=== PATIENT | male | born 1970 | race Caucasian/White ===

== ENCOUNTER 2020-03-11 07:07 | Emergency (ER) | payer OTHER, SELFPAY ==
[2020-03-11 07:09] VITALS: BP 201/111; PULSE 90; RESP 20; TEMP 36.8; O2SAT 98; BMI 39.4
--- NOTE | 2020-03-11 07:15 | CT_ITS ---
STUDY: CT ABDOMEN AND PELVIS WITH CONTRAST REASON FOR EXAM: Male, 49 years old. PT STATED RT SIDE ABDOM PAIN, NO PREV ABDOMINAL HX RADIATION DOSAGE (If Supplied By Facility): CTDIvol = ( 17.08 ) mGy, DLP = ( 1350.57 ) mGycm TECHNIQUE: Transaxial images were obtained from the dome of the diaphragm to the symphysis pubis without oral contrast. IV 100mL Isovue-300 was administered. Sagittal and coronal images were reconstructed. Individualized dose optimization techniques were used for this CT. COMPARISON: None. FINDINGS: Increased markings with areas of confluence in the lateral aspect of the left lower lobe. The visualized portions of the heart are within normal limits. Normal liver. Normal gallbladder and extrahepatic biliary system. Normal spleen. Normal pancreas. Normal bilateral adrenal glands. There is a 1 cm cyst in the anterior upper pole of the right kidney. There is a 5 mm nonobstructive calculus in the lower pole calyx of the right kidney. Mild degree of right hydronephrosis due to a 3 mm calculus at the right ureteropelvic junction. Nonobstructive 5.1 mm calculus in the upper pole of the left kidney. Normal visualized stomach. Normal small intestine. There are scattered colonic diverticula consistent with diverticulosis. The appendix is visualized and appears normal. There is scattered atherosclerotic calcification of the abdominal aorta, without a demonstrated aneurysm. Normal inferior vena cava. Normal retroperitoneum. Normal urinary bladder. There are prostatic calcifications. There is a small umbilical hernia containing fat. There are mild degenerative changes of the visualized lumbar spine. CT/Abdomen/Pelvis W IV Cont ONLY IMPRESSION: 3 mm calculus at the right ureteral pelvic junction causing mild degree of the right hydronephrosis. Small bilateral nonobstructive intrarenal calculi. Mild increased markings in the lateral aspect of the left lower lobe suggestive of atelectasis and/or early infiltrate. Electronically Signed: Blaze Amaya, at 8:17 EDT , Service support ,
[2020-03-11 07:17] VITALS: BP 201/111; PULSE 90; RESP 20; TEMP 36.8; O2SAT 98
[2020-03-11 07:25] LABS: Basophil# 0.09 X10^3/uL; Basophil% 0.7 % (0-1); Eosinophil# 0.32 X10^3/uL; Eosinophils% 2.4 % (0-5); Hematocrit 46.2 % (40-54); Lymphocyte % 27.5 % (19-41); Mean Corp Hgb Conc 32.5 g/dL (32-36); Mean Corpuscular Hgb 30.3 pg (27.0-32.0); Mean Corpuscular Volume 93.3 fL (80-94); Mean Platelet Vol. 10.4 fl (6.2-12.0); Monocyte% 7.6 % (0-10); NRBC Flagged by Analyzer 0 % (0-5); Neutrophil # 8.03 X10^3/uL (2.7-7.7); Neutrophil % 61.3 % (47-70); Platelet Count 346 K/mm3 (150-450); RBC Distribution Width CV 13.6 % (11.6-14.6); RBC Distribution Width SD 46.5 fl (35.1-43.9); Red Blood Count 4.95 M/mm3 (4.6-6.2); White Blood Count 13.1 K/mm3 (4.4-11.0)
[2020-03-11] MEDS: Morphine 4 MG/ML Syringe IV ×2 (07:25→08:07)
[2020-03-11] MEDS: Ondansetron 4 MG/2 ML Vial IV (07:25)
[2020-03-11] MEDS: 0.9% Normal Saline 1,000 ML 1000 ML IV (07:25)
[2020-03-11 07:39] LABS: ALB/GLOB Ratio 0.8 RATIO (0.9-2.4); AST(SGOT) 18 U/L (15-37); Alanine Aminotransfer ALT/SGPT 35 U/L (16-61); Albumin, Serum 3.7 g/dL (3.2-5.0); Alkaline Phosphatase 103 U/L (45-117); Anion Gap 5 (5-15); BUN 12 mg/dL (7-18); BUN/Creat Ratio 10.9 RATIO (10-20); Calcium,Total 9.2 mg/dL (8.5-10.1); Chloride 105 mmol/L (98-107); EST Glomerular Filtration Rate 75 mL/min (>60); Est Glom Filt Rate - Afr Amer 91 mL/min (>60); Estimated Creatinine Clearance 82.03 ml/min; Globulin 4.5 g/dL (2.2-4.2); Glucose 133 mg/dL (74-106); Lipase 147 U/L (73-393); Potassium 3.9 mmol/L (3.5-5.1); Protein, Total 8.2 g/dL (6.4-8.2); Sodium Level 139 mmol/L (136-145)
--- NOTE | 2020-03-11 07:44 | ED.DCSUM_ITS ---
- ER Visit Summary Date of Service: 03/11/20 Chief Complaint: Abdominal pain History of Present Illness: The patient is a [address] Ramirez. Patient reports she woke up this morning at 428 with abdominal pain. States he was fine when he went to bed. Describes it is a sharp pain that is 10 of 10 at worst and a 10 currently. Is worsened by nothing relieved by nothing. He said nausea without vomiting. No diarrhea. His last bowel was yesterday. No melena or hematochezia. No dysuria or frequency. Patient denies flank pain. He has no personal or family history of kidney stones. Review of systems patient reports he had subjective fever and chills. He denies any other complaints. Physical Examination: Vitals: Stable. Afebrile. General: Well-nourished and well-developed. Head: Normocephalic atraumatic. Neck: Supple, no lymphadenopathy. No JVD. Nontender. Cardiovascular: Regular rate and rhythm. No murmurs. Respiratory: No respiratory distress. Clear to auscultation bilaterally. Abdominal: Soft, mild diffuse tenderness palpation is worse in the right lower quadrant, nondistended, normal bowel sounds. No guarding, rebound, or peritoneal signs. Back: Nontender. No CVA tenderness. Extremities: Nontender, no edema. Skin: Normal color, no rash. Neurologic: Alert and oriented ?3. Cranial nerves II through XII are intact. Normal strength and sensation. Psych: Normal affect. Test Results: CBC shows a white count of 13.1. Chem-7 shows a glucose 133. LFTs show globulin 4.5. Lipase is 147. UA shows 50-100 white blood cells, 25- 50 red blood cells, and 1+ bacteria. This was sent for culture. Clinical Impression(s) from Imaging Studies Abdomen/Pelvis CT 03/11/20 07:15 IMPRESSION: 3 mm calculus at the right ureteral pelvic junction causing mild degree of the right hydronephrosis. Small bilateral nonobstructive intrarenal calculi. Mild increased markings in the lateral aspect of the left lower lobe suggestive of atelectasis and/or early infiltrate. Electronically Signed: Blaze Amaya, at 8:17 EDT , Service support , Emergency Department Course and Treatment: Patient had an IV placed. He is given a liter of normal saline. He is given morphine and Zofran IV. He is resting more comfortably. When patient's urine returned he was given a dose of Rocephin IV. He is resting comfortably. Treatment Plan: Patient will be discharged with Percocet, Zofran, naproxen, and Cipro. Instructed to follow-up with Dr. Maher in 3 to 5 days if not improving. Return to the emergency department for any worsening symptoms. Disposition: To home in improved and stable condition. Impression: 1. Right ureterolithiasis. 2. UTI. This note was generated with [employer] dictation software. It may contain incorrect words, spelling, and punctuation that were not noted in review of the chart prior to signing ED Disposition - Plan for ED Patient: Instructions: ED Renal Stone w Colic Prescriptions: Ciprofloxacin [Cipro] 500 mg PO BID #14 tablet Oxycodone HCl/Acetaminophen [Percocet 5/325] 1 tablet PO Q6H PRN PRN 3 Days #12 tablet PRN Reason: Pain Ondansetron [Zofran Odt] 4 mg PO Q8H PRN PRN #10 tablet PRN Reason: Nausea Referrals: Ned Salazar MD [STAFF PHYSICIAN] - 3-5 Days if not improving
[2020-03-11 08:55] LABS: Mucous, Urine 0 SEEN /hpf (<or=2+)
[2020-03-11 08:56] VITALS: BP 149/84; PULSE 77; RESP 19; O2SAT 97
[2020-03-11 08:57] VITALS: BP 149/84; PULSE 77; RESP 19; TEMP 36.9; O2SAT 96
[2020-03-11 08:58] LABS: Color, Urine Yellow (Yellow); Glucose, Dipstick Normal (Normal); Ketone-Dipstick Negative (Negative); Leukocyte Esterase-Dipstick 500 /ul (Negative); Nitrite-Dipstick Negative (Negative); Occult Blood-Urine 250 /ul (Negative); Protein-Dipstick 15 mg/dl (Negative); Specific Gravity, Urine 1.015 (1.002-1.030); Urine Bilirubin Dipstick Negative (Negative); Urine Clarity Sl. Cloudy (Clear); Urine Urobilinogen Normal (Normal)
[2020-03-11 09:12] LABS: Bacteria 1+ /hpf (None Seen); Red Blood Cells-Urine 25-50 SEEN /hpf (0-5); Squamous Epithelial Cells - UA 0-5 SEEN /hpf (0-5); White Blood Cells 50-100 SEEN /hpf (0-5)
[2020-03-11] MEDS: Ceftriaxone 1 GM/50 ML BAG IV (09:44)
[2020-03-11 10:21] VITALS: BP 152/78; PULSE 78; RESP 18; O2SAT 96
== END 2020-03-11 10:22 | disposition home or self-care (01) ==
PROVIDERS: Emergency Provider Emergency Medicine
DX: N13.6 Pyonephrosis (principal); Z72.0 Tobacco use
CPT/HCPCS: 74177; 80053; 81001; 83690; 85025; 87086; 96361; 96365; 96375; 96376; 99283; J7030; Q9967; A4216; J2405

== ENCOUNTER 2021-04-04 21:07 | Emergency (ER) | payer BC, SELFPAY ==
[2021-04-04 21:07] VITALS: BP 189/112; PULSE 80; RESP 20; TEMP 35.9; O2SAT 96; BMI 41.9
--- NOTE | 2021-04-04 21:24 | CT_ITS ---
STUDY: CT ABDOMEN AND PELVIS WITHOUT CONTRAST REASON FOR EXAM: Male, 50 years old. Right flank pain. History of kidney stones. RADIATION DOSAGE (If Supplied By Facility): CTDIvol = ( 23.61 ) mGy, DLP = ( 1286.15 ) mGycm TECHNIQUE: Transaxial images were obtained from the dome of the diaphragm to the symphysis pubis without oral contrast, and without intravenous contrast. Sagittal and coronal images were reconstructed. Individualized dose optimization techniques were used for this CT. COMPARISON: March 11, 2020. FINDINGS: The visualized lung bases are unremarkable. The visualized portions of the heart are within normal limits. Normal liver. Normal gallbladder and extrahepatic biliary system. Normal spleen. Normal pancreas. Normal bilateral adrenal glands. Mild right hydronephrosis secondary to a 6 mm x 3 mm proximal ureteral stone. Bilateral nonobstructive renal calculi largest in the left measuring 6 mm. No left hydronephrosis. Normal visualized stomach. Normal small intestine. Diverticulosis primarily involving the sigmoid colon. The appendix is probably visualized and appears normal. No secondary signs of acute appendicitis. Normal abdominal aorta. Normal inferior vena cava. Normal retroperitoneum. No intra-abdominal free air. Normal urinary bladder. Prostate gland is not enlarged. Normal abdominal wall. Normal osseous structures. CT/Abdomen/Pelvis without Cont IMPRESSION: Mild right hydronephrosis secondary to a 6 mm x 3 mm proximal ureteral stone. Bilateral nonobstructive renal calculi. Sigmoid diverticulosis. Electronically Signed: Josiah Palacios MD at 23:30 EDT , Service support ,
[2021-04-04] MEDS: Ketorolac 30 MG/ML Syringe IV (22:32)
[2021-04-04] MEDS: Ondansetron 4 MG/2 ML Vial IV (22:32)
[2021-04-04] MEDS: 0.9% Normal Saline 1,000 ML 150 ML IV (22:33)
[2021-04-04] MEDS: Morphine 4 MG/ML Syringe IV (22:37)
[2021-04-04 22:40] LABS: Absolute Lymphocyte Count 3.26 X10^3/uL (0.83-4.51); Absolute Neutrophil Count 9.4 X10^3/uL (2.0-7.7); Basophil# 0.11 X10^3/uL; Basophil% 0.8 % (0-1); Eosinophils% 2.8 % (0-5); Hematocrit 44.3 % (40-54); Hemoglobin 14.4 g/dL (13.0-16.5); Lymphocyte # 3.26 X10^3/ul (0.83-4.51); Lymphocyte % 22.9 % (19-41); Mean Corp Hgb Conc 32.5 g/dL (32-36); Mean Corpuscular Hgb 30.1 pg (27.0-32.0); Mean Corpuscular Volume 92.7 fL (80-94); Monocyte# 1.03 X10^3/uL; Monocyte% 7.2 % (0-10); NRBC Flagged by Analyzer 0 % (0-5); Neutrophil # 9.39 X10^3/uL (2.7-7.7); Platelet Count 341 K/mm3 (150-450); RBC Distribution Width CV 13.2 % (11.6-14.6); RBC Distribution Width SD 45.1 fl (35.1-43.9); Red Blood Count 4.78 M/mm3 (4.6-6.2); White Blood Count 14.2 K/mm3 (4.4-11.0)
--- NOTE | 2021-04-04 22:43 | EDS_ITS ---
HPI History of Present Illness Chief Complaint: Flank Pain Informant: patient Onset/Context/Timing Onset: Today Context: Gradual Onset Current Severity: Moderate Maximum Severity: Severe Narrative Narrative: Patient present secondary to right flank pain. He states the pain right now is mostly the right lower quadrant and started within the last 3 or 4 hours. He denies urinary symptoms but does state he had a history of a kidney stone with similar pain about a year ago. He does report some nausea but no vomiting. He did take a [place] approximately 2 hours prior to my evaluation. [facility] Medical History Kidney stone Home Medications NK 04/04/21 [History Last Taken Unknown] hydrocodone-acetaminophen 1 tab PO Q6H PRN 3 Days #14 tab 04/04/21 [Rx Last Taken Unknown] ketorolac 10 mg PO Q6H PRN 3 Days #10 tab 04/04/21 [Rx Last Taken Unknown] ondansetron 4 mg PO Q8H PRN #10 tab 04/04/21 [Rx Last Taken Unknown] Allergy/AdvReac Type Severity Reaction Status Date / Time No Known Allergies Allergy Verified 03/11/20 07:10 Social History Smoking Status: Current every day smoker tobacco type: cigarettes ROS ROS ED Constitutional Constitutional ED: Denies chills or fever(s) Eyes Eyes: Denies change in vision ENT ENT ED: Denies sore throat Cardiovascular Cardiovascular: Denies chest pain Respiratory/Chest Respiratory/Chest: Denies cough or dyspnea Gastrointestinal Gastrointestinal: Reports abdominal pain and nausea; Denies diarrhea or vomiting Genitourinary Genitourinary ED: Denies dysuria or hematuria Musculoskeletal Musculoskeletal: Reports back pain Integumentary Denies rash Neurologic Neurologic: Denies headache(s) or weakness Psychiatric Psychiatric: Denies anxiety or depression Allergic/Immunologic Allergic/Immunologic ED: Denies urticaria EXAM Physical Exam Const Vital Signs: 04/04/21 21:07 04/04/21 22:40 04/05/21 00:09 Temperature 96.6 F L 98.8 F Temperature Source Temporal Oral Pulse Rate 80 63 Respiratory Rate 20 H 15 Respiratory Pattern Normal Blood Pressure 189/112 H 139/100 H Blood Pressure Mean 137 113 Pulse Ox 96 98 Oxygen Delivery Method Room Air Positive well nourished and well developed General Appearance ED: well developed HEENT Reports normocephalic and head/scalp atraumatic Eyes PERRL and EOMs intact bilaterally Neck supple Chest Wall inspection of chest normal and palpation of chest normal Resp normal respiratory effort and clear to auscultation bilaterally Cardio regular rate and regular rhythm GI Auscultation: hypoactive bowel sounds Palpation: soft and tender RLQ Extremity normal to inspection Neuro oriented x3 and no sensory deficits noted Sensorium / Orientation: alert Motor Exam: strength 5/5 throughout Psych mental status grossly normal Skin no rashes or lesions noted MDM MDM MDM Narrative Medical decision making narrative: Patient was given morphine, Toradol, Zofran, IV fluids. Lab work and CT flank obtained. Lab Data Attestation: I reviewed the patient's lab results. Labs: Laboratory Results - last 24 hr 04/04/21 04/04/21 22:30 22:30 WBC 14.2 H RBC 4.78 Hgb 14.4 Hct 44.3 MCV 92.7 MCH 30.1 MCHC 32.5 RDW Std Deviation 45.1 H RDW Coeff of Loi 13.2 Plt Count 341 MPV 10.0 Immature Gran % (Auto) 0.300 Neut % (Auto) 66.0 Lymph % (Auto) 22.9 [place] % (Auto) 7.2 Eos % (Auto) 2.8 Baso % (Auto) 0.8 Absolute Neuts (auto) 9.4 H Absolute Lymphs (auto) 3.26 Nucleated RBC % 0 Sodium 140 Potassium 4.1 Chloride 105 Carbon Dioxide 31.0 Anion Gap 4 L BUN 11 Creatinine 1.11 Estim Creat Clear Calc 80.38 Est GFR (MDRD) Af Amer 89 Est GFR (MDRD) Non-Af 74 BUN/Creatinine Ratio 9.9 L Glucose 106 Calcium 9.2 Radiography Diagnostic Testing: Radiology Impression Abdomen/Pelvis CT 04/04/21 21:24 IMPRESSION: Mild right hydronephrosis secondary to a 6 mm x 3 mm proximal ureteral stone. Bilateral nonobstructive renal calculi. Sigmoid diverticulosis. Electronically Signed: Josiah Palacios MD at 23:30 EDT , Service support , Treatment and Re-Evaluation Comments:: Repeat evaluation patient's pain is significantly improved. Test results discussed with him. He does have a 6 x 3 mm proximal right ureter stone. Patient be treated with analgesics and referred to urology as needed for follow-up. Return instructions are provided. Discharge Plan Triage Chief Complaint: Flank Pain ED Provider: Radha Sim Dx/Rx/DC Orders Clinical Impression: Kidney stone Instructions: ED Kidney Stone w/ Colic Prescriptions: New hydrocodone-acetaminophen 5-325 mg tablet 1 tab PO Q6H PRN (Reason: pain) 3 Days Qty: 14 RF: 0 ondansetron 4 mg tablet,disintegrating 4 mg PO Q8H PRN (Reason: nausea and vomiting) Qty: 10 RF: 0 ketorolac 10 mg tablet 10 mg PO Q6H PRN (Reason: pain) 3 Days Qty: 10 RF: 0 No Action NK RF: 0 Primary Care Provider: Care Physician,No Primary Referrals: Ned Salazar MD [STAFF PHYSICIAN] - 3-5 Days if not improving Care Physician,No Primary [Primary Care Provider] - Disposition Disposition: Home, Self Care Discharge Date/Time: 04/05/21 00:45
[2021-04-04 22:58] LABS: Anion Gap 4 (5-15); BUN 11 mg/dL (7-18); BUN/Creat Ratio 9.9 RATIO (10-20); Calcium,Total 9.2 mg/dL (8.5-10.1); Chloride 105 mmol/L (98-107); Creatinine, Serum 1.11 mg/dL (0.70-1.30); EST Glomerular Filtration Rate 74 mL/min (>60); Est Glom Filt Rate - Afr Amer 89 mL/min (>60); Estimated Creatinine Clearance 80.38 ml/min; Glucose 106 mg/dL (74-106); Potassium 4.1 mmol/L (3.5-5.1); Sodium Level 140 mmol/L (136-145)
[2021-04-05 00:09] VITALS: BP 139/100; PULSE 63; RESP 15; RESP 17; TEMP 37.1; O2SAT 98
== END 2021-04-05 00:45 | disposition home or self-care (01) ==
PROVIDERS: Emergency Medicine; Emergency Provider Emergency Medicine
DX: N13.2 Hydronephrosis with renal and ureteral calculous obstruction (principal); F17.210 Nicotine dependence, cigarettes, uncomplicated; Z87.442 Personal history of urinary calculi
CPT/HCPCS: 74176; 80048; 85025; 96361; 96374; 96375; 99283; J7030; A4216; J2405

== ENCOUNTER 2022-12-09 00:17 | Emergency (ER) | payer BC, SELFPAY ==
[2022-12-09 00:18] VITALS: BP 215/133; PULSE 103; RESP 22; TEMP 36.5; O2SAT 95; BMI 41.5
[2022-12-09 01:07] LABS: Absolute Lymphocyte Count 4.11 X10^3/uL (0.83-4.51); Absolute Neutrophil Count 8.9 X10^3/uL (2.0-7.7); Basophil% 0.7 % (0-1); Eosinophils% 2.1 % (0-5); Hematocrit 44.3 % (40-54); Hemoglobin 14.8 g/dL (13.0-16.5); Lymphocyte # 4.11 X10^3/ul (0.83-4.51); Lymphocyte % 28.3 % (19-41); Mean Corp Hgb Conc 33.4 g/dL (32-36); Mean Corpuscular Hgb 30.2 pg (27.0-32.0); Mean Corpuscular Volume 90.4 fL (80-94); Mean Platelet Vol. 10.7 fl (6.2-12.0); Monocyte# 1.04 X10^3/uL; Monocyte% 7.2 % (0-10); NRBC Flagged by Analyzer 0 % (0-5); Neutrophil # 8.93 X10^3/uL (2.7-7.7); Neutrophil % 61.3 % (47-70); Platelet Count 328 K/mm3 (150-450); RBC Distribution Width CV 13.3 % (11.6-14.6); RBC Distribution Width SD 44.4 fl (35.1-43.9); White Blood Count 14.5 K/mm3 (4.4-11.0)
[2022-12-09 01:09] LABS: Mucous, Urine 0 SEEN /hpf (<or=2+)
[2022-12-09 01:11] LABS: Color, Urine Yellow (Yellow); Glucose, Dipstick Normal (Normal); Leukocyte Esterase-Dipstick 500 /ul (Negative); Nitrite-Dipstick Negative (Negative); Occult Blood-Urine 250 /ul (Negative); Protein-Dipstick 30 mg/dl (Negative); Urine Clarity Sl. Cloudy (Clear); Urine Urobilinogen 8 mg/dl (Normal); Urine pH 6.5 (5.0 - 8.0)
[2022-12-09 01:26] LABS: Ketone-Dipstick Negative (Negative); Urine Bilirubin Dipstick Negative (Negative)
[2022-12-09 01:36] LABS: Anion Gap 7 (5-15); BUN 12 mg/dL (7-18); BUN/Creat Ratio 8.9 RATIO (10-20); Chloride 106 mmol/L (98-107); Creatinine, Serum 1.35 mg/dL (0.70-1.30); EST Glomerular Filtration Rate 59 mL/min (>60); Est Glom Filt Rate - Afr Amer 71 mL/min (>60); Estimated Creatinine Clearance 64.59 ml/min; Glucose 148 mg/dL (74-106); Sodium Level 139 mmol/L (136-145)
[2022-12-09 01:44] LABS: Renal Epithelial Cells 0-5 SEEN /hpf (0-5); Squamous Epithelial Cells - UA 5-10 SEEN /hpf (0-5)
[2022-12-09 01:46] LABS: Transitional Epithelial - Ur 0-5 SEEN /hpf (0-5); White Blood Cells 10-25 SEEN /hpf (0-5)
[2022-12-09 01:47] LABS: Bacteria RARE /hpf (None Seen); Red Blood Cells-Urine 25-50 SEEN /hpf (0-5)
--- NOTE | 2022-12-09 02:15 | CT_ITS ---
EXAM: CT ABDOMEN AND PELVIS WITHOUT INTRAVENOUS CONTRAST CLINICAL INDICATION: flank pain TECHNIQUE: Helically acquired images were obtained of the abdomen and pelvis without intravenous contrast. This CT exam was performed using one or more of the following dose reduction techniques: automated exposure control, adjustment of the mA and/or kV according to patient size, and/or use of iterative reconstruction technique. This report was created using [employer] report generation technology. COMPARISON: None. FINDINGS: LOWER THORAX: Unremarkable. Lung bases are clear. No cardiomegaly. No significant pericardial effusion. ABDOMEN: LIVER: Unremarkable. Homogeneous. GALLBLADDER AND BILE DUCTS: Unremarkable. No calcified gallstones. No gallbladder distention or wall edema. No intra- or extrahepatic biliary ductal dilation. PANCREAS: Unremarkable. No focal cystic mass. SPLEEN: Unremarkable. Normal size without focal cystic or solid mass. ADRENALS: Unremarkable. No nodules. KIDNEYS AND URETERS: There is a 4 mm stone in the distal right ureter, just proximal to the UVJ, causing mild obstructive changes. Nonobstructing stones in the kidneys bilaterally, the largest measuring 6 mm on the right. Normal renal size and position. STOMACH AND BOWEL: Diverticular disease of the colon but no diverticulitis. No stomach or bowel distention. PELVIS: APPENDIX: No evidence of acute appendicitis. BLADDER: Unremarkable. REPRODUCTIVE: Unremarkable as visualized. No mass. ABDOMEN and PELVIS: INTRAPERITONEAL SPACE: Unremarkable. No ascites or other fluid collection. No free air. BONES/JOINTS: Degenerative changes of the spine. No suspicious lytic or blastic abnormality. SOFT TISSUES: Unremarkable. No discrete abdominal or pelvic wall hernia. VASCULATURE: Unremarkable. Abdominal aorta is non-dilated. LYMPH NODES: Unremarkable. No enlarged lymph nodes. CT/Abdomen/Pelvis without Cont IMPRESSION: 1. There is a 4 mm stone in the distal right ureter, just proximal to the UVJ, causing mild obstructive changes. 2. Nonobstructing stones in the kidneys bilaterally, the largest measuring 6 mm on the right. Electronically Signed: Glenn Peck MD at 3:32 EDT ,
[2022-12-09] MEDS: Morphine 4 MG/ML Syringe IV (02:26)
[2022-12-09] MEDS: 0.9% Normal Saline 1,000 ML 999 ML IV (02:26)
[2022-12-09] MEDS: Ondansetron 4 MG/2 ML Vial IV (02:27)
--- NOTE | 2022-12-09 03:43 | EDS_ITS ---
HPI History of Present Illness Chief Complaint: Flank Pain Narrative Narrative: Patient is a 52-year-old male with remote history of kidney stone. He states that over the last 4 to 6 hours he has been having increasing pain in his right back and right side. He states that this feels similar nature to his past kidney stone. He denies any fevers or chills he reports nausea associated with the pain but denies any vomiting. He denies any dysuria. He states he tried [id number] pain control without any improvement and secondary to this comes in for evaluation [facility] Medical History Kidney stone Home Medications hydrocodone-acetaminophen 5-325mg 5mg-325mg 1 tab PO Q6H PRN pain 3 days #14 tabs 04/04/21 [Rx Last Taken Unknown] ketorolac 10 mg tablet 10 mg PO Q6H PRN pain 3 days #10 tabs 04/04/21 [Rx Last Taken Unknown] ondansetron 4 mg disintegrating tablet 4 mg PO Q8H PRN nausea and vomiting #10 tabs 04/04/21 [Rx Last Taken Unknown] ibuprofen 600 mg tablet 600 mg PO 4X/DAY PRN PRN pain #40 TABLETS 12/09/22 [Rx Last Taken Unknown] ondansetron 4 mg disintegrating tablet 4 mg PO TID PRN nausea and vomiting #21 tabs 12/09/22 [Rx Last Taken Unknown] oxycodone-acetaminophen 5 mg-325 mg tablet (Endocet) 1 tab PO Q6H PRN pain 3 days #12 tabs 12/09/22 [Rx Last Taken Unknown] tamsulosin 0.4 mg capsule (Flomax) 0.4 mg PO DAILY 14 days #14 caps 12/09/22 [Rx Last Taken Unknown] Allergy/AdvReac Type Severity Reaction Status Date / Time No Known Allergies Allergy Verified 12/09/22 00:22 Surgical History no surgical history Social History Smoking Status: Current every day smoker tobacco type: cigarettes ROS ROS ED Constitutional Constitutional ED: Denies chills or fever(s) ENT ENT ED: Denies sore throat Cardiovascular Cardiovascular: Denies chest pain Respiratory/Chest Respiratory/Chest: Denies cough or dyspnea Gastrointestinal Gastrointestinal: Reports abdominal pain and nausea; Denies diarrhea or vomiting Genitourinary Genitourinary ED: Denies dysuria, hematuria or urinary frequency Musculoskeletal Musculoskeletal: Reports back pain; Denies myalgias Integumentary Denies rash Neurologic Neurologic: Denies headache(s) Hematologic/Lymphatic Hematologic/Lymphatic: Denies easy bleeding or easy bruising EXAM Physical Exam Const Vital Signs: 12/09/22 00:18 12/09/22 00:40 Temperature 97.7 F L Temperature Source Oral Pulse Rate 103 H Respiratory Rate 22 H Respiratory Effort Normal Respiratory Pattern Normal Blood Pressure 215/133 H Blood Pressure Mean 160 Pulse Ox 95 Oxygen Delivery Method Room Air Positive well nourished, well developed and obese General Appearance ED: well developed Nutritional Appearance: obese HEENT Reports moist mucous membranes Eyes PERRL and EOMs intact bilaterally General Eye ED: Negative for scleral icterus Neck supple Resp normal respiratory effort and clear to auscultation bilaterally Cardio regular rate and regular rhythm Rate: other Other Details: Radial pulses are plus 2 out of 4 bilaterally are equal and symmetric GI non-distended GI Narrative: Abdomen is soft and nondistended with diffuse right-sided abdominal pain. No voluntary guarding or rigidity. No pulsatile mass or fluid wave Auscultation: normoactive bowel sounds Palpation: soft Back/Spine Back/Spine Narrative: Positive right CVA pain noted Extremity normal to inspection Neuro oriented x3 and CN's II-XII intact bilaterally Sensorium / Orientation: alert Psych mental status grossly normal Skin no rashes or lesions noted General Skin Exam: Negative for jaundice MDM MDM MDM Narrative Medical decision making narrative: Patient presented to the ER hypertensive otherwise afebrile. He has remote history of kidney stone and had sudden onset right-sided flank and abdominal pain most consistent with this. Differential includes kidney stone versus pyelonephritis versus biliary colic or pancreatitis. Secondary to concern for kidney stone a CT scan without contrast and basic blood work with urine sample were obtained. Labs showed elevated white blood cell count but otherwise no signs of acute kidney injury or severe electrolyte derangement. Urine showed blood and there are white blood cells present but also contamination with epithelial cells and only trace bacteria therefore do not feel patient has a secondary UTI and there is no need for antibiotics. After treatment with medication the patient's blood pressure improved. Therefore at this time as the CT scan confirms kidney stone consistent with his history and exam but he does not have urosepsis or acute kidney injury he is otherwise safe for discharge History & Record Review Discussion w/independent historian: Patient Lab Data Labs: Laboratory Results - last 24 hr 12/09/22 12/09/22 12/09/22 00:45 00:45 00:45 WBC 14.5 H RBC 4.90 Hgb 14.8 Hct 44.3 MCV 90.4 MCH 30.2 MCHC 33.4 RDW Std Deviation 44.4 H RDW Coeff of Loi 13.3 Plt Count 328 MPV 10.7 Immature Gran % (Auto) 0.400 Neut % (Auto) 61.3 Lymph % (Auto) 28.3 [place] % (Auto) 7.2 Eos % (Auto) 2.1 Baso % (Auto) 0.7 Absolute Neuts (auto) 8.9 H Absolute Lymphs (auto) 4.11 Nucleated RBC % 0 Sodium 139 Potassium 4.0 Chloride 106 Carbon Dioxide 26.0 Anion Gap 7 BUN 12 Creatinine 1.35 H Estim Creat Clear Calc 64.59 Est GFR (MDRD) Af Amer 71 Est GFR (MDRD) Non-Af 59 L BUN/Creatinine Ratio 8.9 L Glucose 148 H Calcium 9.0 Urine Color Yellow Urine Clarity Sl. Cloudy Urine pH 6.5 Ur Specific Drift 1.020 Urine Protein 30 H Urine Glucose (UA) Normal Urine Ketones Negative Urine Occult Blood 250 H Urine Nitrite Negative Urine Bilirubin Negative Urine Urobilinogen 8 H Ur Leukocyte Esterase 500 H Urine RBC 25-50 SEEN Urine WBC 10-25 SEEN Ur Squamous Epith Cells 5-10 SEEN Ur Transition Epith Cell 0-5 SEEN Ur Renal Epithelial Cell 0-5 SEEN Urine Bacteria RARE Urine Mucus 0 SEEN Radiography Diagnostic Testing: Clinical Impression(s) from Imaging Studies Abdomen/Pelvis CT 12/09/22 02:15 IMPRESSION: 1. There is a 4 mm stone in the distal right ureter, just proximal to the UVJ, causing mild obstructive changes. 2. Nonobstructing stones in the kidneys bilaterally, the largest measuring 6 mm on the right. Electronically Signed: Glenn Peck MD at 3:32 EDT , Discharge Plan Triage Chief Complaint: Flank Pain ED Provider: Dipesh Verdugo Dx/Rx/DC Orders Clinical Impression: Kidney stone, Renal colic, Hypertension Instructions: ED Kidney Stone w/ Colic Prescriptions: New ondansetron 4 mg tablet,disintegrating 4 mg PO TID PRN (Reason: nausea and vomiting) Qty: 21 0RF oxycodone-acetaminophen [Endocet] 5-325 mg tablet 1 tab PO Q6H PRN (Reason: pain) 3 Days Qty: 12 0RF tamsulosin [Flomax] 0.4 mg capsule 0.4 mg PO DAILY 14 Days Qty: 14 0RF ibuprofen 600 mg tablet 600 mg PO 4X/DAY PRN PRN (Reason: pain) Qty: 40 0RF No Action hydrocodone-acetaminophen 5-325 mg tablet 1 tab PO Q6H PRN (Reason: pain) 3 Days Qty: 14 0RF ondansetron 4 mg tablet,disintegrating 4 mg PO Q8H PRN (Reason: nausea and vomiting) Qty: 10 0RF ketorolac 10 mg tablet 10 mg PO Q6H PRN (Reason: pain) 3 Days Qty: 10 0RF Primary Care Provider: Care Physician,No Primary Referrals: Ned Salazar MD [Med Staff - Active Staff] - Care Physician,No Primary [Primary Care Provider] - Activity Restrictions/Additional Instructions: Please follow-up with urology to discuss possible need for lithotripsy or stent placement. Return to the ER should you have development of a fever over 100.4 or intractable pain despite taking your medication. Disposition Disposition: Home, Self Care Discharge Date/Time: 12/09/22 03:57
[2022-12-09 03:56] VITALS: BP 131/69; PULSE 82; RESP 16; O2SAT 99
== END 2022-12-09 03:57 | disposition home or self-care (01) ==
PROVIDERS: Emergency Provider Emergency Medicine; Visit Provider Emergency Medicine
DX: N20.2 Calculus of kidney with calculus of ureter (principal); F17.210 Nicotine dependence, cigarettes, uncomplicated; I10 Essential (primary) hypertension; Z87.442 Personal history of urinary calculi; E66.9 Obesity, unspecified
CPT/HCPCS: 74176; 80048; 81001; 85025; 96361; 96374; 96375; 99282; J7030; A4216; J2405

== ENCOUNTER 2024-04-30 08:02 | Emergency (ER) | payer BC, SELFPAY ==
[2024-04-30 08:03] VITALS: BP 118/93; PULSE 78; RESP 16; TEMP 36.4; O2SAT 98; BMI 40.9
[2024-04-30 08:17] VITALS: BP 118/93; PULSE 78; RESP 16; TEMP 36.4; O2SAT 98
--- NOTE | 2024-04-30 08:21 | CT_ITS ---
STUDY: CT ABDOMEN AND PELVIS WITHOUT CONTRAST REASON FOR EXAM: Male, 53 years old. Right flank pain. Urinary frequency and nausea. RADIATION DOSAGE (If Supplied By Facility): CTDIvol = ( 23.73 ) mGy, DLP = ( 1257.13 ) mGycm TECHNIQUE: Transaxial images were obtained from the dome of the diaphragm to the symphysis pubis without oral contrast, and without intravenous contrast. Sagittal and coronal images were reconstructed. Individualized dose optimization techniques were used for this CT. COMPARISON: Comparison is made with prior study December 09, 2022. FINDINGS: The visualized lung bases are unremarkable. The visualized portions of the heart are within normal limits. Normal liver. Normal gallbladder and extrahepatic biliary system. Normal spleen. Normal pancreas. Normal bilateral adrenal glands. Punctate calculus in the anterior aspect of the midpole of the right kidney. 7 mm calculus in the lower pole calyx of the right kidney. There is a 4 mm nonobstructive calculus in the midpole calyx of the left kidney. Normal visualized stomach. Normal small intestine. There is diverticulosis, with thickening of the colon wall, and pericolonic inflammation changes consistent with acute diverticulitis. The appendix is visualized and appears normal. There is scattered atherosclerotic calcification of the abdominal aorta, without a demonstrated aneurysm. Normal inferior vena cava. Normal retroperitoneum. There is diffuse bladder wall thickening. Normal abdominal wall. There are degenerative changes of the visualized lumbar spine. CT/Abdomen/Pelvis without Cont IMPRESSION: Findings in keeping with acute sigmoid diverticulitis. No evidence of abscess or fluid collection at this time. Diffuse bladder wall thickening. Nonobstructive bilateral intrarenal calculi. Electronically Signed: Blaze Amaya MD at 9:11 EDT ,
--- NOTE | 2024-04-30 08:21 | ED.VIS.GI ---
HPI HPI - GI History of Present Illness Chief Complaint: Flank Pain Detail of Chief Complaint: Suprapubic abdominal pain. Informant: patient Abdominal Pain/Flank Pain Onset: Today and Yesterday Context: Gradual Onset Timing: Continuous Quality: Aching Location: See Diagram (Suprapubic. No back pain. No flank pain.) Current Severity: Moderate Maximum Severity: Moderate Worsened by: Movement Relieved by: Nothing Nausea/Vomiting/Emesis GI Symptom: Positive for Nausea Onset: Today Severity: Mild Diarrhea/Melena/Hematochezia GI Symptom: Negative for Diarrhea, Melena or Hematochezia Associated Symptoms Associated Symptoms: Negative for Dysuria, Frequency, Hematuria or Urgency Narrative Narrative: 53-year-old male history of kidney stones. No prior abdominal surgery. No prior surgery for kidney stones. States that he has had suprapubic abdominal pain since yesterday at 5 AM. Associated nausea with the pain but no vomiting or diarrhea. No dysuria or fever. No hematuria. Able to pee without any difficulty. No history of urinary retention or prostate problems. Prior similar symptoms: Yes Recent Illness/Hospitalization: No PFSH [facility] Medical History Kidney stone Home Medications ?Medication ?Instructions ?Recorded ?Last Taken ?Type hydrocodone-acetaminophen 5-325mg 1 tab PO Q6H PRN pain 3 days #14 04/04/21 Unknown Rx 5mg-325mg tabs ketorolac 10 mg tablet 10 mg PO Q6H PRN pain 3 days #10 04/04/21 Unknown Rx tabs ondansetron 4 mg disintegrating 4 mg PO Q8H PRN nausea and 04/04/21 Unknown Rx tablet vomiting #10 tabs ibuprofen 600 mg tablet 600 mg PO 4X/DAY PRN PRN pain #40 12/09/22 Unknown Rx TABLETS ondansetron 4 mg disintegrating 4 mg PO TID PRN nausea and 12/09/22 Unknown Rx tablet vomiting #21 tabs oxycodone-acetaminophen 5 mg-325 1 tab PO Q6H PRN pain 3 days #12 12/09/22 Unknown Rx mg tablet (Endocet) tabs tamsulosin 0.4 mg capsule (Flomax) 0.4 mg PO DAILY 14 days #14 caps 12/09/22 Unknown Rx Allergy/AdvReac Type Severity Reaction Status Date / Time No Known Allergies Allergy Verified 12/09/22 00:22 Social History Smoking Status: Current every day smoker tobacco type: cigarettes ROS ROS ED ROS Narrative Suprapubic abdominal pain. Nausea. Constitutional Constitutional ED: Denies chills or fever(s) ENT ENT ED: Denies ear pain Cardiovascular Cardiovascular: Denies chest pain Respiratory/Chest Respiratory/Chest: Denies cough or dyspnea Gastrointestinal Gastrointestinal: Reports abdominal pain and nausea; Denies constipation, diarrhea, melena or vomiting Genitourinary Genitourinary ED: Denies dysuria, hematuria or urinary frequency Musculoskeletal Musculoskeletal: Denies arthralgias or back pain Integumentary Denies abscess Neurologic Neurologic: Denies headache(s) Psychiatric Psychiatric: Denies anxiety Endocrine Endocrinology: Denies polydipsia Hematologic/Lymphatic Hematologic/Lymphatic: Denies easy bleeding Allergic/Immunologic Allergic/Immunologic ED: Denies mouth swelling EXAM Physical Exam Narrative Exam Narrative: Appearing 53-year-old male. Was walking back from the bathroom. Vital signs are stable afebrile. H EENT exam unremarkable. Neck nontender. Lungs clear to auscultation bilaterally. Heart regular rhythm no murmur. Rate about 80. Abdomen soft nondistended normal bowel sounds without peritoneal signs. Suprapubic tenderness. No right lower quadrant no right upper quadrant. No obstruction. No pulsatile mass. Back nontender. Moving all 4 extremities. Nontender no edema. He is awake and alert. Answering questions following commands. Normal motor strength. Const Vital Signs: 04/30/24 08:03 04/30/24 08:17 Temperature 97.6 F L 97.6 F L Temperature Source Temporal Temporal Pulse Rate 78 78 Respiratory Rate 16 16 Blood Pressure 118/93 H 118/93 H Blood Pressure Mean 101 101 Pulse Ox 98 98 Oxygen Delivery Method Room Air Room Air Positive well nourished and well developed; Negative for cachectic, contractures or unkempt General Appearance ED: well developed; Negative for unkempt, cachectic, contractures or pallor Nutritional Appearance: Negative for cachectic HEENT Reports moist mucous membranes normocephalic and atraumatic; Negative for trauma or tenderness Eyes PERRL and EOMs intact bilaterally Neck no lymphadenopathy, supple and no JVD Resp normal respiratory effort and clear to auscultation bilaterally Cardio regular rate, regular rhythm, S1 normal heart sound and no murmurs GI non-distended and no masses; Negative for non-tender GI Narrative: Suprapubic tenderness only. Inspection: Negative for abdominal distention Palpation: soft and tender; Negative for guarding, hernia, mass, pulsatile mass or rebound tenderness present Back/Spine no CVA tenderness Extremity full ROM General Extremety ED: Negative for edema or tenderness General Extremity: Negative for edema Neuro CN's II-XII intact bilaterally, moves all extremities and gait normal Sensorium / Orientation: alert, oriented to person, oriented to place and oriented to time Motor Exam: strength 5/5 throughout; Negative for general weakness or strength abnormal Psych mental status grossly normal and thought process normal Appearance: Negative for unkempt Attitude: No agitated Mood & Affect: Negative for depressed, anxious or tearful Skin no wounds General Skin Exam: Negative for jaundice or pallor Lesions: no lesions Rashes: no rashes MDM MDM MDM Narrative Medical decision making narrative: 53-year-old male history of kidney stones and suprapubic abdominal pain. UA and labs being obtained. He took a hydrocodone prior to arrival send right now his pain is under control. He was offered pain meds and said just ask if he needed some. I will obtain a CAT scan to evaluate for possible kidney stone versus other etiologies. History & Record Review Discussion w/independent historian: Patient Additional record(s) reviewed:: Prior inpatient record, Prior outpatient record, Prior ED visit and Prior labs Lab Data Attestation: I reviewed the patient's lab results. Lab results narrative: CBC showed an elevated white count of 17. H&H 14 and 43. Platelets 284. Electrolytes show gap 6. Normal BUN and creatinine of 7 and 1. Glucose 133. UA was normal. No nitrites. No white or red cells. Only 1+ bacteria. Labs: Laboratory Results - last 24 hr 04/30/24 04/30/24 08:15 08:26 WBC 17.0 H RBC 4.82 Hgb 14.3 Hct 43.8 MCV 90.9 MCH 29.7 MCHC 32.6 RDW Std Deviation 45.8 H RDW Coeff of Loi 13.6 Plt Count 284 MPV 10.8 Immature Gran % (Auto) 0.500 Neut % (Auto) 72.6 H Lymph % (Auto) 17.9 L [place] % (Auto) 7.3 Eos % (Auto) 1.2 Baso % (Auto) 0.5 Absolute Neuts (auto) 12.4 H Absolute Lymphs (auto) 3.04 Nucleated RBC % 0 Sodium 136 Potassium 3.5 Chloride 105 Carbon Dioxide 25.0 Anion Gap 6 BUN 7 Creatinine 1.03 Estim Creat Clear Calc 109.59 Est GFR (MDRD) Af Amer 96 Est GFR (MDRD) Non-Af 80 BUN/Creatinine Ratio 6.8 L Glucose 133 H Calcium 9.0 Urine Color Yellow Urine Clarity Clear Urine pH 6.0 Ur Specific [place] 1.010 Urine Protein 30 H Urine Glucose (UA) Normal Urine Ketones Negative Urine Occult Blood 10 H Urine Nitrite Negative Urine Bilirubin Negative Urine Urobilinogen 1 H Ur Leukocyte Esterase 100 H Urine RBC 0 SEEN Urine WBC 0-5 SEEN Ur Squamous Epith Cells 0-5 SEEN Urine Bacteria 1+ Urine Mucus 0 SEEN Discharge Plan Triage Chief Complaint: Flank Pain ED Provider: Frank Forbes Dx/Rx/DC Orders Prescriptions: No Action hydrocodone-acetaminophen 5-325 mg tablet 1 tab PO Q6H PRN (Reason: pain) 3 Days Qty: 14 0RF ondansetron 4 mg tablet,disintegrating 4 mg PO Q8H PRN (Reason: nausea and vomiting) Qty: 10 0RF ketorolac 10 mg tablet 10 mg PO Q6H PRN (Reason: pain) 3 Days Qty: 10 0RF ondansetron 4 mg tablet,disintegrating 4 mg PO TID PRN (Reason: nausea and vomiting) Qty: 21 0RF oxycodone-acetaminophen [Endocet] 5-325 mg tablet 1 tab PO Q6H PRN (Reason: pain) 3 Days Qty: 12 0RF tamsulosin [Flomax] 0.4 mg capsule 0.4 mg PO DAILY 14 Days Qty: 14 0RF ibuprofen 600 mg tablet 600 mg PO 4X/DAY PRN PRN (Reason: pain) Qty: 40 0RF Primary Care Provider: Prashanth Ramirez Referrals: Care Physician,No Primary [Non-Staff] - Print Language: Divehi
[2024-04-30 08:29] LABS: Absolute Lymphocyte Count 3.04 X10^3/uL (0.83-4.51); Absolute Neutrophil Count 12.4 X10^3/uL (2.0-7.7); Basophil# 0.08 X10^3/uL; Basophil% 0.5 % (0-1); Eosinophil# 0.21 X10^3/uL; Eosinophils% 1.2 % (0-5); Hematocrit 43.8 % (40-54); Hemoglobin 14.3 g/dL (13.0-16.5); Lymphocyte # 3.04 X10^3/ul (0.83-4.51); Lymphocyte % 17.9 % (19-41); Mean Corp Hgb Conc 32.6 g/dL (32-36); Mean Corpuscular Hgb 29.7 pg (27.0-32.0); Mean Corpuscular Volume 90.9 fL (80-94); Mean Platelet Vol. 10.8 fl (6.2-12.0); Monocyte# 1.25 X10^3/uL; Monocyte% 7.3 % (0-10); NRBC Flagged by Analyzer 0 % (0-5); Neutrophil # 12.36 X10^3/uL (2.7-7.7); Neutrophil % 72.6 % (47-70); Platelet Count 284 K/mm3 (150-450); RBC Distribution Width CV 13.6 % (11.6-14.6); RBC Distribution Width SD 45.8 fl (35.1-43.9); Red Blood Count 4.82 M/mm3 (4.6-6.2)
[2024-04-30 08:31] LABS: Mucous, Urine 0 SEEN /hpf (<or=2+); Red Blood Cells-Urine 0 SEEN /hpf (0-5)
[2024-04-30 08:39] LABS: Color, Urine Yellow (Yellow); Glucose, Dipstick Normal (Normal); Ketone-Dipstick Negative (Negative); Leukocyte Esterase-Dipstick 100 /ul (Negative); Nitrite-Dipstick Negative (Negative); Occult Blood-Urine 10 /ul (Negative); Protein-Dipstick 30 mg/dl (Negative); Urine Bilirubin Dipstick Negative (Negative); Urine Clarity Clear (Clear); Urine Urobilinogen 1 mg/dl (Normal)
[2024-04-30 08:47] LABS: Anion Gap 6 (5-15); BUN 7 mg/dL (7-18); BUN/Creat Ratio 6.8 RATIO (10-20); Chloride 105 mmol/L (98-107); Creatinine, Serum 1.03 mg/dL (0.70-1.30); EST Glomerular Filtration Rate 80 mL/min (>60); Est Glom Filt Rate - Afr Amer 96 mL/min (>60); Estimated Creatinine Clearance 109.59 ml/min; Glucose 133 mg/dL (74-106); Potassium 3.5 mmol/L (3.5-5.1); Sodium Level 136 mmol/L (136-145)
[2024-04-30 09:01] LABS: Bacteria 1+ /hpf (None Seen); Squamous Epithelial Cells - UA 0-5 SEEN /hpf (0-5); White Blood Cells 0-5 SEEN /hpf (0-5)
[2024-04-30 09:15] VITALS: BP 137/62; PULSE 73; RESP 15; TEMP 36.1; O2SAT 98
[2024-04-30] MEDS: Morphine 4 MG/ML Syringe IV (09:15)
[2024-04-30] MEDS: Ondansetron 4 MG/2 ML Vial IV (09:15)
[2024-04-30] MEDS: Amox/Clavulanate 875 MG Tablet PO (09:46)
[2024-04-30 09:50] VITALS: BP 132/79; PULSE 81; RESP 16; TEMP 36.2; O2SAT 99
== END 2024-04-30 09:51 | disposition home or self-care (01) ==
PROVIDERS: Emergency Provider Emergency Medicine; PCP Family Medicine; Visit Provider Emergency Medicine
DX: R10.9 Unspecified abdominal pain (principal); R11.0 Nausea; F17.210 Nicotine dependence, cigarettes, uncomplicated; R10.2 Pelvic and perineal pain; Z87.442 Personal history of urinary calculi
CPT/HCPCS: 74176; 80048; 81001; 85025; 96374; 96375; 99283; A4216; J2405